=== PATIENT | female | born 1980 | race Caucasian/White ===

== ENCOUNTER 2018-07-10 18:21 | Emergency (ER) | payer OTHER ==
--- NOTE | 2018-07-10 19:06 | EKG ---
Test Date: 2018-07-10 Test Time: 18:44:26 [facility] [place]: [place] MEASUREMENT RESULTS: Intervals: Rate: 43 ID: [id number] QRSD: 92 QT: 464 QTc: 392 [place]: P: 56 ID: [id number] QRS: 57 T: 33 INTERPRETIVE STATEMENTS: Marked sinus bradycardia with PAC s Abnormal ECG No previous ECG available for comparison Electronically Signed On 07-10-18 19:05:42 CDT by Rubens Colindres
[2018-07-10 19:58] LABS: Absolute Lymphocytes (CBC) 2.1 K/uL (0.7-4.9); Absolute Monocytes 0.5 K/uL (0.1-1.3); Absolute Neutrophil 2.7 K/uL (1.8-8.0); Basophils % 0.8 % (0-1.3); Eosinophils % 1.2 % (0-4.4); Hematocrit 39.4 % (36.0-45.0); Lymphocytes % 38.1 % (15.3-44.8); MCH 32.4 pg (27.0-35.0); MCV 93.5 fL (80-100); MPV 11.2 fL (7.6-11.3); Monocytes % 9.9 % (3.3-12.3); RBC Red Blood Cell Count 4.22 M/uL (3.86-4.86)
[2018-07-10 20:14] LABS: Magnesium 2.5 mg/dL (1.8-2.4); Potassium 3.7 mmol/L (3.5-5.1)
--- NOTE | 2018-07-10 20:25 | ER ---
Nurse's Notes [facility] Name: Jessica Bush Age: 38 yrs Sex: Female : 1980 Arrival Date: 07/10/2018 Time: 18:25 Bed 19 Private MD: Diagnosis: Bradycardia, unspecified Presentation: 07/10 18:36 Presenting complaint: Patient states: fatigue x 2 weeks ago. Pt states "my heart rate aa5 has always been low 50s but today it was in the 40s and my doctor said to come to the ER". Transition of care: patient was not received from another setting of care. Onset of symptoms was June 2018. Risk Assessment: Do you want to hurt yourself or someone else? Patient reports no desire to harm self or others. Initial Sepsis Screen: Does the patient meet any 2 criteria? No. Patient's initial sepsis screen is negative. Does the patient have a suspected source of infection? No. Patient's initial sepsis screen is negative. Care prior to arrival: None. 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 - Social history:: Smoking status: Patient/guardian denies using tobacco. - Ebola Screening: : No symptoms or risks identified at this time. Screenin:09 Abuse screen: Denies threats or abuse. Denies injuries from another. Nutritional bp screening: No deficits noted. Tuberculosis screening: No symptoms or risk factors identified. Fall Risk None identified. Assessment: 19:00 General: Appears in no apparent distress. comfortable, obese, Behavior is calm, bp cooperative, appropriate for age. General: Reports fatigue for. Pain: Denies pain. Neuro: Level of Consciousness is awake, alert, obeys commands, Oriented to person, place, time, situation. Cardiovascular: Rhythm is sinus bradycardia. Respiratory: Airway is patent Respiratory effort is even, unlabored, Respiratory pattern is regular, symmetrical. GI: No signs and/or symptoms were reported involving the gastrointestinal system. : No signs and/or symptoms were reported regarding the genitourinary system. EENT: No deficits noted. Derm: Skin is dry, Skin is pink, warm \\T\\ dry. Skin temperature is warm. Musculoskeletal: Circulation, motion, and sensation intact. Range of motion: intact in all extremities. 20:00 Reassessment: PT REMAINS IN TIM ARRYTHMIA BUT NORMO-TENSIVE. ALL CURRENT ORDERS IN bp PROCESS. 20:43 Reassessment: PT D/C HOME AMBULATORY, DX WITH UNSPECIFIED BRADYCARDIA. bp Vital Signs: 18:37 BP 148 / 80; Pulse 43; Resp 18 S; Temp 98.4(TE); Pulse Ox 97% on R/A; Weight 88.45 kg aa5 (R); Height 5 ft. 3 in. (160.02 cm) (R); Pain 0/10; 19:00 BP 150 / 99; Pulse 57; Resp 16; Pulse Ox 97% ; bp 20:00 BP 122 / 69; Pulse 46; Resp 14; Pulse Ox 99% ; bp 20:42 BP 126 / 65; Pulse 59; Resp 14; Pulse Ox 98% ; bp 18:37 Body Mass Index 34.54 (88.45 kg, 160.02 cm) aa5 ED Course: 18:25 Patient arrived in ED. mr 18:37 Triage completed. aa5 18:37 Arm band placed on. aa5 18:41 Radu Hudson MD is Attending Physician. gs 18:43 Britni Aguilar, RN is Primary Nurse. ch 18:53 EKG done, by ED staff, reviewed by Radu Hudson MD. em1 18:59 Primary Nurse role handed off by Britni Aguilar, RN bp 18:59 Joey South, SANDER is Primary Nurse. bp 19:09 Patient has correct armband on for positive identification. Call light in reach. Side bp rails up X2. 19:48 Inserted saline lock: 20 gauge in right antecubital area, using aseptic technique. bp Blood collected. 20:24 Rubens Colindres MD is Referral Physician. gs 20:41 No provider procedures requiring assistance completed. IV discontinued, intact, bp bleeding controlled, No redness/swelling at site. Pressure dressing applied. Administered Medications: No medications were administered Outcome: 20:25 Discharge ordered by . gs 20:45 Discharged to home ambulatory, with family. bp 20:45 Condition: stable 20:45 Discharge instructions given to patient, Instructed on discharge instructions, follow up and referral plans. Demonstrated understanding of instructions, follow-up care. 20:45 Patient left the ED. bp Signatures: Britni Aguilar, RN RN Ese Hugo, Neo em1 Jennifer Munguia, SANDER RN aa5 Radu Hudson MD MD Joey South RN RN bp
--- NOTE | 2018-07-10 20:25 | EDPHYS ---
Physician Documentation [facility] Name: Jessica Bush Age: 38 yrs Sex: Female : 1980 Arrival Date: 07/10/2018 Time: 18:25 Bed 19 Private MD: ED Physician Radu Hudson HPI: 07/10 20:21 This 38 yrs old Female presents to ER via Ambulatory with complaints of Heart gs Rate Problem. 20:21 The patient presents with a history of bradycardia. Onset: The symptoms/episode gs began/occurred 1 week(s) ago. Duration: The patient or guardian reports a single episode, that is still ongoing. Modifying factors: The symptoms are aggravated by nothing. The symptoms are alleviated by nothing. Associated signs and symptoms: Pertinent negatives: chest pain, lightheadedness, syncope, near-syncope. Severity of symptoms: At their worst the symptoms were moderate in the emergency department the symptoms are unchanged. The patient has experienced similar episodes in the past, several times. The patient has been recently seen by a physician: the patient's primary care provider. 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 - Social history:: Smoking status: Patient/guardian denies using tobacco. - Ebola Screening: : No symptoms or risks identified at this time. ROS: 20:21 All other systems are negative. gs Exam: 20:21 Head/Face: Normocephalic, atraumatic. Eyes: Pupils equal round and reactive to light, gs extra-ocular motions intact. Lids and lashes normal. Conjunctiva and sclera are non-icteric and not injected. Cornea within normal limits. Periorbital areas with no swelling, redness, or edema. ENT: Nares patent. No nasal discharge, no septal abnormalities noted. Tympanic membranes are normal and external auditory canals are clear. Oropharynx with no redness, swelling, or masses, exudates, or evidence of obstruction, uvula midline. Mucous membranes moist. Neck: Trachea midline, no thyromegaly or masses palpated, and no cervical lymphadenopathy. Supple, full range of motion without nuchal rigidity, or vertebral point tenderness. No Meningismus. Chest/axilla: Normal chest wall appearance and motion. Nontender with no deformity. No lesions are appreciated. Respiratory: Lungs have equal breath sounds bilaterally, clear to auscultation and percussion. No rales, rhonchi or wheezes noted. No increased work of breathing, no retractions or nasal flaring. Abdomen/GI: Soft, non-tender, with normal bowel sounds. No distension or tympany. No guarding or rebound. No evidence of tenderness throughout. Back: No spinal tenderness. No costovertebral tenderness. Full range of motion. Skin: Warm, dry with normal turgor. Normal color with no rashes, no lesions, and no evidence of cellulitis. MS/ Extremity: Pulses equal, no cyanosis. Neurovascular intact. Full, normal range of motion. Neuro: Awake and alert, GCS 15, oriented to person, place, time, and situation. Cranial nerves II-XII grossly intact. Motor strength 5/5 in all extremities. Sensory grossly intact. Cerebellar exam normal. Normal gait. 20:21 Constitutional: The patient appears alert, awake. 20:21 Cardiovascular: Rate: bradycardic, Rhythm: regular, Pulses: no pulse deficits are appreciated. 20:21 ECG was reviewed by the Attending Physician. Vital Signs: 18:37 BP 148 / 80; Pulse 43; Resp 18 S; Temp 98.4(TE); Pulse Ox 97% on R/A; Weight 88.45 kg aa5 (R); Height 5 ft. 3 in. (160.02 cm) (R); Pain 0/10; 19:00 BP 150 / 99; Pulse 57; Resp 16; Pulse Ox 97% ; bp 20:00 BP 122 / 69; Pulse 46; Resp 14; Pulse Ox 99% ; bp 20:42 BP 126 / 65; Pulse 59; Resp 14; Pulse Ox 98% ; bp 18:37 Body Mass Index 34.54 (88.45 kg, 160.02 cm) aa5 MDM: 19:03 Patient medically screened. 20:21 Differential diagnosis: arrythmia, dehydration, stress disorder. Data reviewed: vital gs signs, nurses notes. Response to treatment: the patient's symptoms have mildly improved after treatment, and as a result, I will discharge patient. Physician consultation: Rubens Colindres MD regarding consult, and will see patient in office. 07/10 18:55 Order name: CBC with Diff 07/10 18:55 Order name: Basic Metabolic Panel; Complete Time: 20:21 07/10 18:41 Order name: EKG; Complete Time: 18:41 07/10 18:41 Order name: EKG - Nurse/Tech; Complete Time: 18:53 07/10 18:55 Order name: Magnesium; Complete Time: 20:21 07/10 20:01 Order name: CBC Smear Scan EDNV EC: Rate is 43 beats/min. Rhythm is regular. VT interval is normal. QRS interval is normal. No Q waves. T waves are Normal. Clinical impression: Sinus bradycardia. Interpreted by me. Administered Medications: No medications were administered Disposition: 07/10/18 20:25 Discharged to Home. Impression: Bradycardia, unspecified. - Condition is Stable. - Discharge Instructions: Bradycardia, Adult. - Medication Reconciliation Form, Thank You Letter, Antibiotic Education, Prescription Opioid Use form. - Follow up: Rubens Colindres MD; When: 2 - 3 days; Reason: Re-evaluation by your physician. Signatures: Dis[facility] Jennifer Munguia RN RN aa5 Radu Hudson MD MD Joey South, RN RN bp Corrections: (The following items were deleted from the chart) 20:45 20:25 07/10/2018 20:25 Discharged to Home. Impression: Bradycardia, unspecified. bp Condition is Stable. Forms are Medication Reconciliation Form, Thank You Letter, Antibiotic Education, Prescription Opioid Use. Follow up: Rubens Colindres; When: 2 - 3 days; Reason: Re-evaluation by your physician. gs
[2018-07-10 20:56] LABS: Blood Morphology Comment NOT SEEN (NOT SEEN); Platelet Estimate ADEQ; Urine White Blood Cell Casts OK
== END 2018-07-10 20:45 | disposition home or self-care (01) ==
LOC: ER 18:21
DX: R00.1 Bradycardia, unspecified (principal)
CPT/HCPCS: 36415; 80048; 83735; 85025; 93005; 99284